=== PATIENT | male | born 1985 | race Caucasian/White ===

== ENCOUNTER 2022-07-30 13:19 | Emergency (ER) | payer OTHER | END 2022-07-30 16:26 | disposition home or self-care (01) | LOC: FER 13:19 | DX: S39.92XA Unspecified injury of lower back, initial encounter (principal); S89.92XA Unspecified injury of left lower leg, initial encounter; F17.210 Nicotine dependence, cigarettes, uncomplicated; V49.40XA Driver injured in collision with unspecified motor vehicles in traffic accident, initial encounter; Z28.311 Partially vaccinated for COVID-19 | CPT/HCPCS: 72110; 73522; 73564 ==